=== PATIENT | male | born 1995 | race Caucasian/White ===

== ENCOUNTER 2021-10-10 11:09 | Emergency (ER) | payer MEDICAID ==
[~2021-10-10] VITALS: Ht 185.4 cm; Wt 79.5 kg
[2021-10-10 12:07] VITALS: BP 150/87
== END 2021-10-10 15:10 | disposition home or self-care (01) ==
LOC: ER 11:13
DX: R29.810 Facial weakness (principal); R20.0 Anesthesia of skin
CPT/HCPCS: 70450; 99284

== ENCOUNTER 2024-12-29 12:22 | Emergency (ER) | payer MEDICAID ==
[~2024-12-29] VITALS: Ht 188 cm; Wt 85.2 kg
[2024-12-29 12:28] VITALS: BP 140/78; PULSE 67; RESP 16; TEMP 98.1; O2SAT 96
[2024-12-29] MEDS ORDERED: CLIN300C3 PO (13:57)
[2024-12-29] MEDS: clindamycin 150mg capsule PO ONE (14:27)
== END 2024-12-29 14:34 | disposition home or self-care (01) ==
LOC: ER 12:23
DX: K04.7 Periapical abscess without sinus (principal)
CPT/HCPCS: 99283

== ENCOUNTER 2025-08-06 08:44 | Emergency (ER) | payer MEDICAID ==
[~2025-08-06] VITALS: Ht 185.4 cm; Wt 83.7 kg
[2025-08-06 08:56] VITALS: BP 140/81; PULSE 68; TEMP 98; O2SAT 95
[2025-08-06] MEDS ORDERED: AMOX500C2 PO (09:03)
[2025-08-06 09:04] VITALS: RESP 16
--- NOTE | 2025-08-06 09:04 | Physician Documentation ---
History of Present Illness ~ Stated Complaint: TOOTH PAIN Time Seen by MD: 09:04 Primary Medical Doctor: [facility] 30-year-old male presents to the ED after having a previously cracked tooth fall out completely in front aspect of his oral cavity. Develop some pain in his advised to come here by his dentist to get antibiotics .denies any fever Day of Onset: Aug 06, 2025 Medication Reconciliation Allergies: Coded Allergies: No Known Allergies (Unverified , 08/06/25) Scheduled Amoxicillin Trihydrate* (Amoxicillin*), 1 CAP PO Q8H Past Medical History Past Medical History: No Pertinent History Past Surgical History: no surgical history Alcohol Use: None Drug Use: none Lives In: Home Review of Systems All Other Systems at this time: Reviewed and Negative ROS As stated above in the HPI, otherwise all systems are reviewed and negative. Constitutional: Reports: no symptoms reported Physical Exam Physical Exam General: Alert, no apparent distress. HEENT: PERRL, EOMI, no injection, moist mucous membranes. missing upper front tooth Neurologic: Oriented x4. Psychiatric: Normal mood and affect. Skin: Normal color, warm and dry. No edema, no ecchymosis. Progress Results/Orders Results/Orders Vital Signs 08/06/25 08/06/25 08:56 09:04 Temp 98.0 Pulse 68 Resp 16 16 B/P (MAP) 140/81 Pulse Ox 95 O2 Flow Rate 0 Medical Decision Making Additional information obtaine: N/A Findings Treating this patient empirically for developing tooth infection he needs to follow up in his dentist for emergent tooth replacement Ear Diff. Dx: Considerations: Unlikely: Abrasion, Cerumen impaction, Foreign body, Otitis externa, Barotrauma, Otitis media, Perforation, Referred pain- dental, Referred pain-pharyngitis, Referred pain-sinusitis, Referred pain-TMJ syn., Tympanic Membrane Injury, Other Eye Diff. Dx: Considerations: Unlikely: Chalazoin, Conjuctivits-allergic, Conjuctivitis-bacterial, Conjuctivits-chlamydial, Conjuctivitis-viral, Corneal abrasion, Corneal laceration, Corneal ulceration, Foreign body-conjuctiva, Foreign body-corneal, Foreign body-intraocular, Foreign body-lid, Glaucoma, Globe rupture, Hordeolum, Iritis, Orbital cellulitis, Periobital cellulitis, Retinal artery occulsion, Retinal vein occlusion, Rust ring, Subconjunctival hem, Ultraviolet keratitis, Uveitis, Vitreous hemorrhage, Other Nose Diff. Dx: Considerations: Unlikely: Abrasion, Anterior nasal bleed, Avulsion, Contusion, Coagulopathy, Fracture-nasal bone, Fracture-septum, Hypertension, Laceration, Other, Posterior nasal bleed, Retained foreign body, Septal hematoma Tooth Diff. Dx: Considerations: Include: Alveolar fracture, Aveolar osteitis, ANUG, Facial cellulitis, Periapical abscess, Periodontal abscess, Post- extraction bleeding, Pulpitis, Trigeminal neuralgia, Tooth-avulsion, Tooth- eruption, Tooth-fracture, Tooth-subluxation, Other Throat Diff Dx: Considerations: Unlikely: AIDS, Epiglottitis, Esophageal candidiasis, Hand foot mouth disease, Herpangina, Herpetic stomatitis, Herpes simplex, Infection mononucleosis, Immunodeficiency, Haresh's angina, Peritonsillar abscess, Peritonsillar cellulitis, Pharyngitis-diphtheria, Pharyngitis-strepococcal, Pharyngitis-viral, Thrush, URI, Other Departure Disposition: 01 HOME / SELF CARE / HOMELESS Impression: Primary Impression: Tooth absence Condition: Stable Discharge Instructions: Tooth Injuries, [id number] Additional Instructions: Follow up with your dentist soon as possible Referrals: NO PRIMARY CARE PROVIDER (PCP) Prescriptions Amoxicillin Trihydrate* (Amoxicillin*) 500 Mg Capsule 1 CAP PO Q8H for 10 Days, #30 CAP Prov: ONESIMO MOSS NP 08/06/25 Education Educated: Patient Educated regarding: diagnosis Signature Scribe Signature: f Attestation: Scribed for Emergency,Department by Onesimo Scott NP . 08/06/25 09:04 ONESIMO MOSS NP Aug 06, 2025 09:04
== END 2025-08-06 09:29 | disposition home or self-care (01) ==
LOC: ER 08:45
DX: K08.89 Other specified disorders of teeth and supporting structures (principal)
CPT/HCPCS: 99283